=== PATIENT | male | born 1975 | race Caucasian/White ===

== ENCOUNTER 2018-02-25 18:21 | Emergency (ER) | payer OTHER ==
[2018-02-25] MEDS ORDERED: KETOROLAC TROMETHAMINE INJ/PF 30 MG/1 ML SDV IM ONE (19:07)
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
--- NOTE | 2018-02-25 19:30 | RADIOLOGY REPORT (SQ) ---
EXAM DESCRIPTION: ANKLE RIGHT COMPLETE COMPLETED DATE/TIME: 02/25/2018 7:13 pm REASON FOR STUDY: rt ankle pain s/p injury COMPARISON: None. NUMBER OF VIEWS: Three views. TECHNIQUE: AP, lateral, and oblique radiographic images acquired of the right ankle. LIMITATIONS: None. FINDINGS: MINERALIZATION: Normal. BONES: No acute fracture or dislocation. No worrisome bone lesions. JOINTS: No effusions. SOFT TISSUES: No soft tissue swelling. No foreign body. OTHER: No other significant finding. IMPRESSION: NEGATIVE STUDY OF THE RIGHT ANKLE. NO RADIOGRAPHIC EVIDENCE OF ACUTE INJURY. TECHNICAL DOCUMENTATION: JOB ID: [id number] [employer]- All Rights Reserved Reading location - IP/workstation name: [email or web address]
[2018-02-25 19:50] VITALS: BP 117/67
== END 2018-02-25 19:53 | disposition home or self-care (01) ==
LOC: ER 18:21
DX: M25.571 Pain in right ankle and joints of right foot (principal); X50.0XXA Overexertion from strenuous movement or load, initial encounter
CPT/HCPCS: 99283; 96372; 73610; L1902; J1885

== ENCOUNTER 2019-07-17 16:23 | Emergency (ER) | payer OTHER ==
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
[2019-07-17 17:56] LABS: ABSOLUTE BASOPHILS # (AUTO) 0.1 10^3/uL (0.0-0.2); ABSOLUTE EOSINOPHILS # (AUTO) 0.1 10^3/uL (0.0-0.6); ABSOLUTE LYMPHOCYTES (AUTO) 1.7 10^3/uL (0.5-4.7); ABSOLUTE MONOCYTES (AUTO) 0.7 10^3/uL (0.1-1.4); ABSOLUTE NEUT (AUTO) 5.4 10^3/uL (1.7-8.2); BASOPHILS % (AUTO) 0.7 % (0-2); EOSINOPHILS % (AUTO) 1.5 % (0-6); HEMATOCRIT 37.5 % (37.9-51.0); LYMPHOCYTES % (AUTO) 20.7 % (13-45); MEAN CORPUSCULAR HEMOGLOBIN 32.7 pg (27.0-33.4); MEAN CORPUSCULAR HGB CONC 34.7 g/dL (32.0-36.0); MEAN CORPUSCULAR VOLUME 94 fl (80-97); PLATELET COUNT 191 10^3/uL (150-450); RED BLOOD COUNT 3.98 10^6/uL (4.35-5.55); RED CELL DISTRIBUTION WIDTH 13.6 % (11.5-14.0); SEGMENTED NEUTROPHILS % (AUTO) 68.1 % (42-78); TOTAL CELLS COUNTED % (AUTO) 100 %
[2019-07-17] MEDS ORDERED: CEPHALEXIN 500 MG CAPSULE PO ONE (18:10)
--- NOTE | 2019-07-17 18:12 | RADIOLOGY REPORT (SQ) ---
EXAM DESCRIPTION: ELBOW RIGHT AP/LAT COMPLETED DATE/TIME: 07/17/2019 5:49 pm REASON FOR STUDY: pain swelling COMPARISON: None. EXAM PARAMETERS: NUMBER OF VIEWS: Two view. TECHNIQUE: AP and lateral radiographic images acquired of the right elbow. LIMITATIONS: None. FINDINGS: MINERALIZATION: Normal. BONES: No acute fracture or dislocation. No worrisome bone lesions. JOINTS: No effusion. SOFT TISSUES: No significant soft tissue swelling. No radiopaque foreign body. OTHER: No other significant finding. IMPRESSION: NO FRACTURE. TECHNICAL DOCUMENTATION: JOB ID: [id number] [id number] 2010 [employer]- All Rights Reserved Reading location - IP/workstation name: [email or web address]
[2019-07-17 18:16] LABS: ALBUMIN 3.7 g/dL (3.5-5.0); ALKALINE PHOSPHATASE 78 U/L (38-126); ANION GAP 8 (5-19); ASPARTATE AMINO TRANSFERASE 19 U/L (17-59); BILIRUBIN,DIRECT 0.3 mg/dL (0.0-0.4); BILIRUBIN,TOTAL 0.4 mg/dL (0.2-1.3); BLOOD UREA NITROGEN 24 mg/dL (7-20); CALCIUM 9.5 mg/dL (8.4-10.2); CARBON DIOXIDE 27 mmol/L (22-30); CHLORIDE 103 mmol/L (98-107); GLUCOSE 114 mg/dL (75-110); POTASSIUM 4.4 mmol/L (3.6-5.0); TOTAL PROTEIN 6.4 g/dL (6.3-8.2)
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
[2019-07-17 19:24] VITALS: BP 129/68
== END 2019-07-17 19:24 | disposition home or self-care (01) ==
LOC: ER 16:23
DX: L03.113 Cellulitis of right upper limb (principal); M10.9 Gout, unspecified; T22.011A Burn of unspecified degree of right forearm, initial encounter; X08.8XXA Exposure to other specified smoke, fire and flames, initial encounter; M25.521 Pain in right elbow; D64.9 Anemia, unspecified; F17.200 Nicotine dependence, unspecified, uncomplicated; Z79.899 Other long term (current) drug therapy
CPT/HCPCS: 36415; 80053; 85025; 87040; 99283

== ENCOUNTER 2019-11-14 09:14 | Emergency (ER) | payer OTHER ==
[2019-11-14] MEDS ORDERED: RINGERS SOLUTION,LACTATED 1,000 ML IV ONE (10:51)
[2019-11-14] MEDS ORDERED: DIPHENHYDRAMINE HCL 50 MG/ML VIAL IV ONE (10:52)
[2019-11-14] MEDS ORDERED: DEXAMETHASONE 4 MG TABLET PO ONE (10:52)
[2019-11-14] MEDS ORDERED: METOCLOPRAMIDE HCL INJ/PF 10 MG/2 ML SDV IV ONE (10:52)
[2019-11-14 11:40] LABS: ABSOLUTE BASOPHILS # (AUTO) 0.1 10^3/uL (0.0-0.2); ABSOLUTE EOSINOPHILS # (AUTO) 0.1 10^3/uL (0.0-0.6); ABSOLUTE LYMPHOCYTES (AUTO) 1.7 10^3/uL (0.5-4.7); ABSOLUTE MONOCYTES (AUTO) 1.1 10^3/uL (0.1-1.4); ABSOLUTE NEUT (AUTO) 14.4 10^3/uL (1.7-8.2); BASOPHILS % (AUTO) 0.5 % (0-2); EOSINOPHILS % (AUTO) 0.3 % (0-6); HEMATOCRIT 44.6 % (37.9-51.0); HEMOGLOBIN 15.4 g/dL (13.5-17.0); LYMPHOCYTES % (AUTO) 9.6 % (13-45); MEAN CORPUSCULAR HEMOGLOBIN 32.5 pg (27.0-33.4); MEAN CORPUSCULAR HGB CONC 34.5 g/dL (32.0-36.0); MEAN CORPUSCULAR VOLUME 94 fl (80-97); MONOCYTES % (AUTO) 6.3 % (3-13); PLATELET COUNT 234 10^3/uL (150-450); RED BLOOD COUNT 4.72 10^6/uL (4.35-5.55); RED CELL DISTRIBUTION WIDTH 12.9 % (11.5-14.0); SEGMENTED NEUTROPHILS % (AUTO) 83.3 % (42-78); TOTAL CELLS COUNTED % (AUTO) 100 %; WHITE BLOOD COUNT 17.3 10^3/uL (4.0-10.5)
[2019-11-14 11:43] LABS: APPEARANCE,URINE CLEAR; BILIRUBIN,URINE NEGATIVE (NEGATIVE); COLOR,URINE YELLOW; GLUCOSE, URINE NEGATIVE (NEGATIVE); KETONES,URINE NEGATIVE (NEGATIVE); LEUKOCYTE ESTERASE,URINE NEGATIVE (NEGATIVE); NITRITE,URINE NEGATIVE (NEGATIVE); PROTEIN,URINE NEGATIVE (NEGATIVE); URINE SPECIFIC GRAVITY 1.018; UROBILINOGEN,URINE NEGATIVE mg/dL (<2.0)
--- NOTE | 2019-11-14 11:56 | ER Document Report ---
ED General - General Chief Complaint: Headache Stated Complaint: HEADACHE Mode of Arrival: Ambulatory Information source: Patient Notes: 44-year-old male with hypertension, obesity, pack per day smoking history presents with 1 week of right-sided headache that he describes as a throbbing aching pain that has been intermittent, not associated with fever, trauma and not maximal at onset. Patient also complaining of having floating black spots in his vision intermittently. He denies any recent illness, chest pain, shortness of breath, slurred speech, difficulty with ambulation, focal weakness. Patient has tried Motrin intermittently with mild relief. Does report a history of migraine headaches in his 20s. TRAVEL OUTSIDE OF THE [place] IN LAST 30 DAYS: No - HPI Onset: Last week Onset/Duration: Gradual, Intermittent Quality of pain: Throbbing Severity: Moderate Pain Level: 3 Associated symptoms: Headache, Nausea. denies: Body/muscle aches, Chest pain, Nonproductive cough, Productive cough, Earache, Fever, Hurts to breath, Vomiting, Shortness of breath, Weakness Exacerbated by: Denies Relieved by: Denies Similar symptoms previously: Yes Recently seen / treated by doctor: Yes - Related Data Allergies/Adverse Reactions: No Known Allergies Allergy (Verified 07/17/19 17:13) Home Medications: Lisinopril. Hydrochlorothiazide. Omeprazole Past Medical History - General Information source: Patient - Social History Smoking Status: Current Every Day Smoker Cigarette use (# per day): Yes - 20 Smoking Education Provided: Yes - Smoking cessation counseling was provided for 4 minutes at the bedside Frequency of alcohol use: Heavy - And he has never ever remote history of heavy alcohol use failure and afebrile Drug Abuse: None Lives with: Alone Family History: Reviewed & Not Pertinent Patient has suicidal ideation: No Patient has homicidal ideation: No - Past Medical History Cardiac Medical History: Reports: Hx Hypertension Renal/ Medical History: Denies: Hx Peritoneal Dialysis GI Medical History: Reports: Hx Gastroesophageal Reflux Disease Review of Systems - Review of Systems Constitutional: denies: Fever, Weakness EENT: Blurred vision. denies: Double vision, Ear pain, Ear discharge, Sinus pressure, Sinus discharge, Throat pain, Difficulty swallowing Cardiovascular: denies: Chest pain, Palpitations, Heart racing Respiratory: denies: Cough, Short of breath Gastrointestinal: Nausea. denies: Abdominal pain, Vomiting Genitourinary: denies: Dysuria Male Genitourinary: No symptoms reported Musculoskeletal: denies: Back pain, Muscle pain, Leg swelling Skin: denies: Rash Hematologic/Lymphatic: No symptoms reported Neurological/Psychological: Headaches. denies: Confusion, Weakness, Gait changes, Loss of power, Speech impairment, Numbness -: Yes All other systems reviewed and negative Physical Exam - Vital signs Vitals: Temp Pulse Resp BP Pulse Ox 97.8 F 82 18 126/69 H 98 11/14/19 09:30 11/14/19 09:30 11/14/19 09:30 11/14/19 09:30 11/14/19 09:30 - Notes Notes: PHYSICAL EXAMINATION: GENERAL: Well-appearing, well-nourished and in no acute distress. HEAD: Atraumatic, normocephalic. EYES: Pupils equal round and reactive to light, extraocular movements intact, sclera anicteric, conjunctiva are normal. ENT: Nares patent, oropharynx clear without exudates. Moist mucous membranes. NECK: Normal range of motion, supple without lymphadenopathy LUNGS: Breath sounds clear to auscultation bilaterally and equal. No wheezes rales or rhonchi. HEART: Regular rate and rhythm without murmurs ABDOMEN: Soft, nontender, nondistended abdomen. No guarding, no rebound. No masses appreciated. Musculoskeletal: Normal range of motion, no pitting or edema. No cyanosis. NEUROLOGICAL: Mental status; alert and oriented x3. Cranial nerves II through XII intact. Sensation intact to sharp/dull differentiation in all extremities. Motor; normal tone. No abnormal movements appreciated. No pronator drift. Strength tested and 5/5 in bilateral wrist flexion/extension, elbow flexion/extension, shoulder abduction, straight leg raise, knee flexion/extensi on, ankle dorsiflexion/plantar flexion. Patient ambulates with a steady gait. Coordination; no ataxia. Finger to nose and heel to mcgrath testing intact bilaterally. Reflexes; brachial radialis, biceps, and patellar reflexes within normal limits and symmetric bilaterally. Babinski with downgoing toes bilaterally. PSYCH: Normal mood, normal affect. SKIN: Warm, Dry, normal turgor, no rashes or lesions noted. Course - Re-evaluation Re-evalutation: Microbiology 11/14/19 14:57 Gram Stain - Preliminary Cerebral Spinal Fluid - Csf Laboratory 11/14/19 11/14/19 11/14/19 11:04 11:04 11:04 WBC 17.3 H RBC 4.72 Hgb 15.4 Hct 44.6 MCV 94 MCH 32.5 MCHC 34.5 RDW 12.9 Plt Count 234 Lymph % (Auto) 9.6 L [place] % (Auto) 6.3 Eos % (Auto) 0.3 Baso % (Auto) 0.5 Absolute Neuts (auto) 14.4 H Absolute Lymphs (auto) 1.7 Absolute Monos (auto) 1.1 Absolute Eos (auto) 0.1 Absolute Basos (auto) 0.1 Seg Neutrophils % 83.3 H Sodium Cancelled Potassium Cancelled Chloride Cancelled Carbon Dioxide Cancelled Anion Gap Cancelled BUN Cancelled Creatinine Cancelled Est GFR ( Amer) Cancelled Est GFR (Non-Af Amer) Cancelled Est GFR (MDRD) Non-Af Cancelled Glucose Cancelled Calcium Cancelled Total Bilirubin Cancelled Direct Bilirubin Cancelled Neonat Total Bilirubin Cancelled Neonat Direct Bilirubin Cancelled Neonat Indirect Bili Cancelled AST Cancelled ALT Cancelled Alkaline Phosphatase Cancelled Total Protein Cancelled Albumin Cancelled EGFR Cancelled Urine Color YELLOW Urine Appearance CLEAR Urine pH 6.0 Ur Specific [place] 1.018 Urine Protein NEGATIVE Urine Glucose (UA) NEGATIVE Urine Ketones NEGATIVE Urine Blood NEGATIVE Urine Nitrite NEGATIVE Urine Bilirubin NEGATIVE Urine Urobilinogen NEGATIVE Ur Leukocyte Esterase NEGATIVE Urine WBC (Auto) 1 Urine RBC (Auto) 0 Squamous Epi Cells Auto 1 Urine Mucus (Auto) RARE Urine Ascorbic Acid NEGATIVE Fluid Tube Number CSF Volume CSF Appearance CSF Color CSF WBC CSF RBC CSF Glucose CSF Total Protein Urine Opiates Screen Urine Methadone Screen Ur Barbiturates Screen Ur Phencyclidine Scrn Ur Amphetamines Screen U Benzodiazepines Scrn Urine Cocaine Screen U Marijuana (THC) Screen Serum Alcohol Cancelled Influenza A (Rapid) Influenza B (Rapid) 11/14/19 11/14/19 11/14/19 11:04 12:25 13:15 WBC RBC Hgb Hct MCV MCH MCHC RDW Plt Count Lymph % (Auto) [place] % (Auto) Eos % (Auto) Baso % (Auto) Absolute Neuts (auto) Absolute Lymphs (auto) Absolute Monos (auto) Absolute Eos (auto) Absolute Basos (auto) Seg Neutrophils % Sodium 131.4 L Potassium 4.6 Chloride 94 L Carbon Dioxide 28 Anion Gap 9 BUN 19 Creatinine 0.73 Est GFR ( Amer) > 60 Est GFR (Non-Af Amer) Est GFR (MDRD) Non-Af > 60 Glucose 91 Calcium 9.5 Total Bilirubin 0.7 Direct Bilirubin 0.3 Neonat Total Bilirubin Not Reportable Neonat Direct Bilirubin Not Reportable Neonat Indirect Bili Not Reportable AST 18 ALT 24 Alkaline Phosphatase 69 Total Protein 6.9 Albumin 3.8 EGFR Urine Color Urine Appearance Urine pH Ur Specific [place] Urine Protein Urine Glucose (UA) Urine Ketones Urine Blood Urine Nitrite Urine Bilirubin Urine Urobilinogen Ur Leukocyte Esterase Urine WBC (Auto) Urine RBC (Auto) Squamous Epi Cells Auto Urine Mucus (Auto) Urine Ascorbic Acid Fluid Tube Number CSF Volume CSF Appearance CSF Color CSF WBC CSF RBC CSF Glucose CSF Total Protein Urine Opiates Screen NEGATIVE Urine Methadone Screen NEGATIVE Ur Barbiturates Screen NEGATIVE Ur Phencyclidine Scrn NEGATIVE Ur Amphetamines Screen NEGATIVE U Benzodiazepines Scrn NEGATIVE Urine Cocaine Screen NEGATIVE U Marijuana (THC) Screen NEGATIVE Serum Alcohol < 10 Influenza A (Rapid) NEGATIVE Influenza B (Rapid) NEGATIVE 11/14/19 11/14/19 11/14/19 14:53 14:57 14:57 WBC RBC Hgb Hct MCV MCH MCHC RDW Plt Count Lymph % (Auto) [place] % (Auto) Eos % (Auto) Baso % (Auto) Absolute Neuts (auto) Absolute Lymphs (auto) Absolute Monos (auto) Absolute Eos (auto) Absolute Basos (auto) Seg Neutrophils % Sodium Potassium Chloride Carbon Dioxide Anion Gap BUN Creatinine Est GFR ( Amer) Est GFR (Non-Af Amer) Est GFR (MDRD) Non-Af Glucose Calcium Total Bilirubin Direct Bilirubin Neonat Total Bilirubin Neonat Direct Bilirubin Neonat Indirect Bili AST ALT Alkaline Phosphatase Total Protein Albumin EGFR Urine Color Urine Appearance Urine pH Ur Specific [place] Urine Protein Urine Glucose (UA) Urine Ketones Urine Blood Urine Nitrite Urine Bilirubin Urine Urobilinogen Ur Leukocyte Esterase Urine WBC (Auto) Urine RBC (Auto) Squamous Epi Cells Auto Urine Mucus (Auto) Urine Ascorbic Acid Fluid Tube Number 4 1 CSF Volume 21.0 21.0 CSF Appearance CLEAR CLEAR CSF Color COLORLESS COLORLESS CSF WBC 3 4 CSF RBC 15 565 CSF Glucose 55 CSF Total Protein 41 Urine Opiates Screen Urine Methadone Screen Ur Barbiturates Screen Ur Phencyclidine Scrn Ur Amphetamines Screen U Benzodiazepines Scrn Urine Cocaine Screen U Marijuana (THC) Screen Serum Alcohol Influenza A (Rapid) Influenza B (Rapid) Guidance Fluoroscopy 11/14/19 00:00 IMPRESSION: Lumbar puncture under fluoroscopy with increased opening pressures. No immediate complication. Head CTA 11/14/19 10:51 IMPRESSION: 1. No acute intracranial abnormality. 2. No aneurysm, dissection, occlusion or stenosis of the intracranial arterial vasculature. Neck CTA 11/14/19 10:51 IMPRESSION: No aneurysm, dissection or stenosis of the cervical arterial vasculature. Lumbar Puncture 11/14/19 14:08 IMPRESSION: Lumbar puncture under fluoroscopy with increased opening pressures. No immediate complication. Temp Pulse Resp BP Pulse Ox 98.3 F 78 14 132/67 H 96 11/14/19 13:33 11/14/19 13:33 11/14/19 16:01 11/14/19 16:01 11/14/19 16:01 11/14/19 17:54 Patient reevaluated multiple times and reports improvement of his headache. LP performed and CSF not consistent with meningitis. Patient has no neuro deficits. CBC does show a leukocytosis but unclear of the source which could be stress related. 11/14/19 18:[address] Ervin regarding the patient's presentation and findings of increased opening pressure on lumbar puncture. He advises neurology co nsultation. [facility] was contacted and awaiting callback. 11/14/19 18:[address] Domingo Dunne neurologist from [facility] discussing the patient's presentation and lab findings as well as patient's opening pressure. No immediate intervention recommended. Feels patient can be followed up as an outpatient. 11/14/19 18:41 Patient has remained afebrile, without neuro deficits. CSF not consistent with meningitis. Patient did have elevated opening pressures on LP which neurology thought could be positional related, weight related. Patient was provided a copy of all of his imaging and lab work performed today to bring with him to his primary care physician's office on November 18. Patient urged to return with worsening symptoms or anything concerning to him. Patient was evaluated and treated as appropriate for the patient's presenting symptoms and complaint, with consideration of any critical or life threatening conditions that may be associated with their obtained history and exam as noted above. All results were discussed with patient and his friend who is at the bedside patient provided the opportunity to ask questions, and express concerns. Patient was educated on treatments based on their presumed diagnosis as noted above. At this time we will discharge the patient with return precautions and follow-up recommendations. Verbal discharge instructions given a the bedside. Medication warnings reviewed. Patient is in agreement with this plan and has verbalized understanding of return precautions. After careful consideration I feel that that patient can be safely discharged from the emergency department, they were advised to followup with a primary care physician in 2-3 days. Dictation on this chart was performed using voice recognition software and may result in unintended grammatical, spelling, syntax or errors. - Vital Signs Vital signs: Temp Pulse Resp BP Pulse Ox 98.3 F 78 22 H 112/77 96 11/14/19 13:33 11/14/19 13:33 11/14/19 18:01 11/14/19 18:01 11/14/19 18:01 - Laboratory Result Diagrams: 11/14/19 11:04 11/14/19 12:25 Laboratory results interpreted by me: 11/14/19 11/14/19 11:04 12:25 WBC 17.3 H Lymph % (Auto) 9.6 L Absolute Neuts (auto) 14.4 H Seg Neutrophils % 83.3 H Sodium 131.4 L Chloride 94 L - Diagnostic Test Radiology reviewed: Image reviewed, Reports reviewed Discharge - Discharge Clinical Impression: Headache Qualifiers: Headache type: unspecified Headache chronicity pattern: unspecified pattern Intractability: not intractable Qualified Code(s): R51 - Headache Leukocytosis Qualifiers: Leukocytosis type: unspecified Qualified Code(s): D72.829 - Elevated white blood cell count, unspecified Condition: Good Disposition: HOME, SELF-CARE Instructions: Headache ([facility]) Additional Instructions: Please bring all of your laboratory and imaging testing that was performed today with you to your primary care physician's appointment on November 18. Follow up with your [id number] hours for further care or return to the ED IMMEDIATELY if symptoms worsen or you have any concerns. If you cannot afford to follow up with your primary care physician a list of low cost clinics have been provided at the end of your discharge papers as well. Most prescribed medications have multiple side effects. The safest thing to do is when filling your prescription speak to your pharmacist regarding possible interactions with your normal home medications and over the counter medications such as Ibuprofen, Tylenol, Benadryl. If you experience any symptoms that cause you discomfort or concern you should discontinue the medication immediately and return to the emergency room or call your primary care physician. Prescriptions: Amox Tr/Potassium Clavulanate [Augmentin 875-125 mg Tablet] 1 tab PO BID #20 tablet Rizatriptan Benzoate [Maxalt] 10 mg PO ONCE PRN #10 tablet PRN Reason: Forms: Smoking Cessation Education, Elevated Blood Pressure
[2019-11-14 12:22] LABS: URINE AMPHETAMINES SCREEN NEGATIVE; URINE BARBITURATES SCREEN NEGATIVE; URINE BENZODIAZEPINES SCREEN NEGATIVE; URINE COCAINE SCREEN NEGATIVE; URINE MARIJUANA (THC) SCREEN NEGATIVE; URINE METHADONE SCREEN NEGATIVE; URINE PHENCYCLIDINE SCREEN NEGATIVE
[2019-11-14 13:17] LABS: ALBUMIN 3.8 g/dL (3.5-5.0); ALKALINE PHOSPHATASE 69 U/L (38-126); ANION GAP 9 (5-19); ASPARTATE AMINO TRANSFERASE 18 U/L (17-59); BILIRUBIN,DIRECT 0.3 mg/dL (0.0-0.4); BILIRUBIN,TOTAL 0.7 mg/dL (0.2-1.3); BLOOD UREA NITROGEN 19 mg/dL (7-20); CALCIUM 9.5 mg/dL (8.4-10.2); CARBON DIOXIDE 28 mmol/L (22-30); CHLORIDE 94 mmol/L (98-107); GLUCOSE 91 mg/dL (75-110); POTASSIUM 4.6 mmol/L (3.6-5.0); TOTAL PROTEIN 6.9 g/dL (6.3-8.2)
[2019-11-14 13:19] LABS: ALCOHOL < 10 mg/dL (NONE DETECTED)
[2019-11-14] MEDS ORDERED: LORAZEPAM INJ 2 MG/1 ML VIAL IV ONE (13:41)
[2019-11-14 13:42] LABS: A TYPE INFLUENZA AG NEGATIVE (NEGATIVE); B INFLUENZA AG NEGATIVE (NEGATIVE)
--- NOTE | 2019-11-14 13:52 | RADIOLOGY REPORT (SQ) ---
EXAM DESCRIPTION: CTA NECK COMPLETED DATE/TIME: 11/14/2019 1:32 pm REASON FOR STUDY: headache visual changes COMPARISON: None. TECHNIQUE: Axial dynamic scanning technique with dynamic contrast enhancement through the extra-overhead crane truck loader nial carotid and vertebral arteries. Multiplanar reconstruction. 3-D MIPS and Volume-rendered imag es acquired at the workstation and saved to PACS. Images are reviewed in soft tissue, bone, lung w indows. All CT scanners at this facility use dose modulation, iterative reconstruction, and/or weight based d osing when appropriate to reduce radiation dose to as low as reasonably achievable (ALARA). [facility]: Dose Right [facility]: CareDose [facility]: Dose Right [facility]: Teradose 4D [facility]: V2contact CONTRAST TYPE AND DOSE: 70 mL Omnipaque 350- low osmolar. RENAL FUNCTION: GFR > 60. LIMITATIONS: None. FINDINGS: AORTIC ARCH: Standard 3 vessel arch. The subclavian arteries are patent. There is no dis section. RIGHT CAROTIDS: The common, internal and external carotid arteries are patent without aneurysm, disse ction or stenosis. RIGHT VERTEBRAL: Patent without dissection, aneurysm or stenosis. LEFT CAROTIDS: The common, internal and external carotid arteries are patent without on resume, disse ction or stenosis. LEFT VERTEBRAL: Patent without dissection, aneurysm or stenosis. OTHER: No acute findings. OTHER: 3-D reconstructions confirm findings. IMPRESSION: No aneurysm, dissection or stenosis of the cervical arterial vasculature. COMMENT: Quality ID #[id number]: Measurements of distal internal carotid diameter were used as the denomina tor for stenosis measurement. TECHNICAL DOCUMENTATION: JOB ID: [id number] Quality ID # 436: Final reports with documentation of one or more dose reduction techniques (e.g., Au tomated exposure control, adjustment of the mA and/or kV according to patient size, use of iterative reconstruction technique) 2010 [employer]- All Rights Reserved Reading location - IP/workstation name: [email or web address]
--- NOTE | 2019-11-14 13:56 | RADIOLOGY REPORT (SQ) ---
EXAM DESCRIPTION: CTA HEAD COMPLETED DATE/TIME: 11/14/2019 1:32 pm REASON FOR STUDY: headache visual changes COMPARISON: None. TECHNIQUE: Post IV contrast scanning, thin section axial imaging through the brain to evaluate the a rterial structures. Source and MIP images are saved and reviewed on PACS. Advanced 3D imaging as volume-rendering, MIPs, SSD performed? yes All CT scanners at this facility use dose modulation, iterative reconstruction, and/or weight based d osing when appropriate to reduce radiation dose to as low as reasonably achievable (ALARA). [facility]: Dose Right [facility]: CareDose [facility]: Dose Right [facility]: Teradose 4D [facility]: Second Decimal CONTRAST TYPE AND DOSE: Contrast/concentration: Isovue 350.00 mg/ml; Total Contrast Delivered: 70.0 ml; Total Saline Delivered: 59.3 ml RENAL FUNCTION: GFR > 60. LIMITATIONS: None. FINDINGS: There is no acute intracranial hemorrhage, vascular territorial infarct, extra-axial fluid collection, mass effect or midline shift. There is no effacement of the cerebral sulci or basal sub arachnoid cisterns. The dietz-white matter differentiation is preserved. The caliber the ventricles is concordant with the degree of sulcation. The orbits and globes are intact. The paranasal sinuses are clear. There is no fracture of the calvarium. There is no pathologic intracranial enhancement. The M1 and M2 segments of the MCAs are patent; there is no distal branch occlusion. The anterior communicating artery is patent. The arborization pattern in the distribution of the TAWNYA s is symmetric. There is a variant origin of the right FIRST FRONT VENTILATOR. The basilar artery and its branches are patent. T he arborization pattern in the distribution of the commercial food instructor is symmetric. The dural venous sinuses and deep cerebral veins are patent. IMPRESSION: 1. No acute intracranial abnormality. 2. No aneurysm, dissection, occlusion or stenosis of the intracranial arterial vasculature. TECHNICAL DOCUMENTATION: JOB ID: [id number] Quality ID # 436: Final reports with documentation of one or more dose reduction techniques (e.g., Au tomated exposure control, adjustment of the mA and/or kV according to patient size, use of iterative reconstruction technique) 2010 [employer]- All Rights Reserved Reading location - IP/workstation name: [email or web address]
[2019-11-14] MEDS ORDERED: HYDROMORPHONE HCL INJ/PF 2 MG/ML AMPULE IV ONE ×2 (14:09→16:34)
[2019-11-14 15:54] LABS: GLUCOSE,CSF 55 mg/dL (40-70); PROTEIN,CSF 41 mg/dL (12-60)
--- NOTE | 2019-11-14 16:10 | RADIOLOGY REPORT (SQ) ---
EXAM DESCRIPTION: LUMBAR PUNCTURE; FLUORO/NEEDLE PLACEMENT/SPINE COMPLETED DATE/TIME: 11/14/2019 3:03 pm REASON FOR STUDY: Intractable headache with history of meningitis; HEADACHE COMPARISON: None. FLUOROSCOPY TIME: 10 seconds of fluoroscopy was used. 2 Images saved to PACS. TECHNIQUE: Fluoroscopic guided lumbar puncture with opening and closing pressures. LIMITATIONS: None. PROCEDURE: After written consent and assessment were obtained, the patient was brought into the fluo roscopy room and placed prone on the table. The patient's lower back was prepped in a sterile fashion and an entry site was selected under live fluoroscopic guidance. The entry site was anesthetized wit h 1% lidocaine. A 15 cm, 20 gauge needle was advanced through the skin and into the thecal sac at the level of L 3 -L 4 . An opening pressure of 30 units was obtained. After approximately 21 ml of CSF w as drained, a closing pressure of 21 units was obtained. The needle was removed and a sterile bandage was placed of the site. Specimens were sent to the lab for testing. A fluoroscopic spot image was sa tushar to PACS confirming level access. FINDINGS: Clear CSF IMPRESSION: Lumbar puncture under fluoroscopy with increased opening pressures. No immediate complic ation. COMMENT: Patient medication list reviewed: Yes- Quality ID# [id number]:Eligible professional attests to doc umenting in the medical record they obtained, updated, or reviewed the patient's current medications. Quality ID 145: Final reports for procedures using fluoroscopy that document radiation exposure indic es, or exposure time and number of fluorographic images (if radiation exposure indices are not availa ble) TECHNICAL DOCUMENTATION: Job ID: [id number] [employer]- All Rights Reserved Reading location - IP/workstation name: [email or web address]
[2019-11-14 16:12] LABS: APPEARANCE ALL TUBES CLEAR; COLOR ALL TUBES COLORLESS; CSF TUBE NUMBER 1
[2019-11-14 16:13] LABS: RED BLOOD CELL,CSF 565 /uL (0-10)
[2019-11-14 16:14] LABS: WHITE BLOOD CELL,CSF 4 /uL (0-5)
[2019-11-14 16:33] LABS: CSF TUBE NUMBER 4
[2019-11-14 16:34] LABS: APPEARANCE ALL TUBES CLEAR; COLOR ALL TUBES COLORLESS; RED BLOOD CELL,CSF 15 /uL (0-10)
[2019-11-14] MEDS ORDERED: KETOROLAC TROMETHAMINE INJ/PF 30 MG/1 ML SDV IV ONE (16:34)
[2019-11-14 16:35] LABS: WHITE BLOOD CELL,CSF 3 /uL (0-5)
[2019-11-14 18:35] VITALS: BP 112/77
== END 2019-11-14 18:47 | disposition home or self-care (01) ==
LOC: ER 09:14
DX: R51 Headache (principal); D72.829 Elevated white blood cell count, unspecified; R11.0 Nausea; F17.210 Nicotine dependence, cigarettes, uncomplicated; I10 Essential (primary) hypertension
CPT/HCPCS: 96376; 99406; 99284; 96361; 96374; 96375; 36415; 87070; 87205; 80307 ×2; 87252; 85025; 89050; 82945; 84157; 80053; 81001; 87804; 77003; 62270; 70496; 70498; J8540; J1200; J1885; J2765; J1170; J2060; J7120; 62328

== ENCOUNTER 2019-11-16 20:14 | Emergency (ER) | payer OTHER ==
[2019-11-16 20:31] VITALS: BP 127/65
[2019-11-16] MEDS ORDERED: NORMAL SALINE 1000 ML 1,000 ML IV ONE (21:30)
[2019-11-16] MEDS ORDERED: DIPHENHYDRAMINE HCL 50 MG/ML VIAL IV ONE (21:30)
[2019-11-16] MEDS ORDERED: METOCLOPRAMIDE HCL INJ/PF 10 MG/2 ML SDV IV ONE (21:30)
--- NOTE | 2019-11-16 21:35 | ER Document Report ---
ED Headache - General Stated Complaint: MIGRAINE,CONFUSION Time Seen by Provider: 11/16/19 21:10 Notes: Patient is a 44-year-old male that comes emergency department for chief complaint of a headache. Patient was seen here 2 days ago for evaluation and treatment of a headache as well, at that time a lumbar puncture was performed, neurology was consulted, and patient was discharged home on Maxalt and Augmentin. Patient states Augmentin was in case he had a sinus infection. He states the Maxalt helps for short duration but earlier this afternoon his head began throbbing again, he became light sensitive and sound sensitive and so he came back in for evaluation. Patient also states he is sleeping poorly and earlier today he felt disoriented, denies disorientation or confusion now. He states since last Thursday he has been having daily headaches like this that progressively get worse each time. He states that he was seen on Thursday by urgent care, had a CAT scan of the head and a migraine cocktail, felt good with no headache until the next morning, however since that time he has been having daily headaches again. He denies head injury, fever, vomiting, neck pain or injury. He states as a teenager he had similar severe headaches but not since that time. Past medical history of obesity, hypertension, smoking, denies alcohol, denies recreational drugs. at bedside. Patient denies any bleeding or leaking from the lumbar puncture site. TRAVEL OUTSIDE OF THE [place] IN LAST 30 DAYS: No - Related Data Allergies/Adverse Reactions: No Known Allergies Allergy (Verified 07/17/19 17:13) Past Medical History - General Information source: Patient - Social History Smoking Status: Current Every Day Smoker Frequency of alcohol use: None Drug Abuse: None Lives with: Family Family History: Reviewed & Not Pertinent - Past Medical History Cardiac Medical History: Reports: Hx Hypertension Renal/ Medical History: Denies: Hx Peritoneal Dialysis GI Medical History: Reports: Hx Gastroesophageal Reflux Disease Surgical Hx: Negative - Immunizations Immunizations up to date: Yes Hx Diphtheria, Pertussis, Tetanus Vaccination: Yes Review of Systems - Review of Systems Constitutional: No symptoms reported EENT: No symptoms reported Cardiovascular: No symptoms reported Respiratory: No symptoms reported Gastrointestinal: No symptoms reported Genitourinary: No symptoms reported Male Genitourinary: No symptoms reported Musculoskeletal: No symptoms reported Skin: No symptoms reported Hematologic/Lymphatic: No symptoms reported Neurological/Psychological: See HPI Physical Exam - Vital signs Vitals: Temp Pulse Resp BP Pulse Ox 98.0 F 85 18 127/65 H 96 11/16/19 20:29 11/16/19 20:29 11/16/19 20:29 11/16/19 20:29 11/16/19 20:29 - Notes Notes: GENERAL: Alert, interacts well. No acute distress. HEAD: Normocephalic, atraumatic. EYES: Pupils equal, round, and reactive to light. Extraocular movements intact. ENT: Oral mucosa moist, tongue midline. Oropharynx unremarkable. Airway patent. NECK: Full range of motion. Supple. Trachea midline. LUNGS: Clear to auscultation bilaterally, no wheezes, rales, or rhonchi. No respiratory distress. HEART: Regular rate and rhythm. No murmur ABDOMEN: Soft, non-tender. Non-distended. Bowel sounds present in all 4 quadrants. GENITOURINARY: Deferred EXTREMITIES: Moves all 4 extremities spontaneously. No edema, normal radial and dorsalis pedis pulses bilaterally. No cyanosis. BACK: no cervical, thoracic, lumbar midline tenderness. No saddle anesthesia, normal distal neurovascular exam. Moves all extremities in full range of motion. NEUROLOGICAL: Alert and oriented x3. Normal speech. Cranial nerves II through XII grossly intact. PSYCH: Normal affect, normal mood. SKIN: Warm, dry, normal turgor. No rashes or lesions noted. Course - Re-evaluation Re-evalutation: Patient has a normal neurological exam. Normal neck exam. Unremarkable vital signs. He is actually very well-appearing, polite, calm, does not appear to be in any distress. In addition to this the area over the back where patient had a lumbar puncture performed I cannot even discern the location anymore. This does not appear to have been bleeding or draining, patient denies that it was. Also patient has no lightheadedness or worsening symptoms with position changes. He stood up when I entered the room, ambulate around the room without any obvious worsening symptoms. Because he does not have position changes, reported leaking, I have a low suspicion of headache being from post lumbar puncture CSF leak. Patient does not have any symptoms suggesting epidural hematoma either. Patient has very migraine-like symptoms including throbbing headache with photophobia and phonophobia. Discussed with patient, trying Reglan and Benadryl first. On evaluation patient is wide awake, states he feels the same, no significant change. I discussed with Dr. Shah. He agrees that based on patient's evaluation he does not think the patient needs a blood patch, he recommends 2 of Fioricet and reevaluation with plan to discharge to follow up with Neurology. I discussed with patient, he states understanding and agreement. Nursing came and informed me that patient had suddenly eloped from the emergency department without clear explanation. - Vital Signs Vital signs: Temp Pulse Resp BP Pulse Ox 98.0 F 85 18 127/65 H 96 11/16/19 20:29 11/16/19 20:29 11/16/19 20:29 11/16/19 20:29 11/16/19 20:29 - Laboratory Result Diagrams: 11/16/19 22:14 11/16/19 22:47 Laboratory results interpreted by me: 11/16/19 11/16/19 22:14 22:47 WBC 13.0 H RBC 4.18 L Absolute Neuts (auto) 8.6 H Sodium 131.5 L BUN 24 H Discharge - Discharge Clinical Impression: Headache Qualifiers: Headache type: unspecified Headache chronicity pattern: episodic headache Intractability: intractable Qualified Code(s): R51 - Headache Disposition: ELOPED
[2019-11-16 22:32] LABS: ABSOLUTE BASOPHILS # (AUTO) 0.1 10^3/uL (0.0-0.2); ABSOLUTE EOSINOPHILS # (AUTO) 0.1 10^3/uL (0.0-0.6); ABSOLUTE LYMPHOCYTES (AUTO) 2.9 10^3/uL (0.5-4.7); ABSOLUTE MONOCYTES (AUTO) 1.4 10^3/uL (0.1-1.4); ABSOLUTE NEUT (AUTO) 8.6 10^3/uL (1.7-8.2); BASOPHILS % (AUTO) 0.5 % (0-2); EOSINOPHILS % (AUTO) 0.8 % (0-6); HEMATOCRIT 39.4 % (37.9-51.0); HEMOGLOBIN 13.6 g/dL (13.5-17.0); LYMPHOCYTES % (AUTO) 22.4 % (13-45); MEAN CORPUSCULAR HEMOGLOBIN 32.6 pg (27.0-33.4); MEAN CORPUSCULAR HGB CONC 34.6 g/dL (32.0-36.0); MEAN CORPUSCULAR VOLUME 94 fl (80-97); MONOCYTES % (AUTO) 10.4 % (3-13); PLATELET COUNT 227 10^3/uL (150-450); RED BLOOD COUNT 4.18 10^6/uL (4.35-5.55); RED CELL DISTRIBUTION WIDTH 12.7 % (11.5-14.0); SEGMENTED NEUTROPHILS % (AUTO) 65.9 % (42-78); TOTAL CELLS COUNTED % (AUTO) 100 %
[2019-11-16 23:18] LABS: BLOOD UREA NITROGEN 24 mg/dL (7-20); CALCIUM 8.8 mg/dL (8.4-10.2); CHLORIDE 100 mmol/L (98-107); GLUCOSE 97 mg/dL (75-110); POTASSIUM 3.9 mmol/L (3.6-5.0)
[2019-11-16 23:19] LABS: ANION GAP 5 (5-19); CARBON DIOXIDE 27 mmol/L (22-30)
[2019-11-17] MEDS ORDERED: BUTALB/ACETAMINOPHEN/CAFFEINE 1 TAB EACH PO ONE (00:23)
[2019-11-17] MEDS ORDERED: KETOROLAC TROMETHAMINE INJ/PF 30 MG/1 ML SDV IV ONE (00:23)
== END 2019-11-17 01:25 | disposition left against medical advice (07) ==
LOC: ER 20:14
DX: R51 Headache (principal); H53.149 Visual discomfort, unspecified; I10 Essential (primary) hypertension; F17.200 Nicotine dependence, unspecified, uncomplicated; Z98.890 Other specified postprocedural states; Z53.20 Procedure and treatment not carried out because of patient's decision for unspecified reasons
CPT/HCPCS: 99281; 96361; 96374; 96375; 36415; 85025; 80048; J1200; J2765; J7030

== ENCOUNTER → 2019-11-18 | Outpatient (CLI) | payer OTHER ==
--- NOTE | 2019-11-18 15:15 | RADIOLOGY REPORT (SQ) ---
EXAM DESCRIPTION: MRI HEAD COMBO COMPLETED DATE/TIME: 11/18/2019 2:50 pm REASON FOR STUDY: MIGRAINE (G43.809) G43.809 OTHER MIGRAINE, NOT INTRACTABLE, WITHOUT STATUS MIGR COMPARISON: CTA of the head from 11/14/2019. TECHNIQUE: Multiplanar imaging includes noncontrasted T1, T2, FLAIR, diffusion with ADC map and post gadolinium contrast T1 sequences. Images stored on PACS. CONTRAST TYPE AND DOSE: 20 mL Dotarem. RENAL FUNCTION: Not indicated. ACR Type II contrast agent associated with few, if any, unconfounded cases of NSF LIMITATIONS: None. FINDINGS: There is a partially empty sella. The corpus callosum and craniocervical junction are nor mal in appearance. 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 There is no restricted diffusion on the DWI. There is no T2/FLAIR signal abnormality. There is no blooming artifact on the gradient sequences. There is no acute intracranial hemorrhage, extra-axial fluid collection, mass, mass effect or midline shift. There is no effacement of the cerebral sulci or basal subarachnoid cisterns. The dietz-white matter differentiation is preserved. The caliber the ventricles is concordant with the degree of jacobs lcation. The intracranial vascular flow voids are preserved. There is no pathologic intracranial enhancement. The orbits and globes are normal in appearance. There is no opacification of the paranasal sinuses. IMPRESSION: No acute intracranial abnormality. EVIDENCE OF ACUTE STROKE: NO. TECHNICAL DOCUMENTATION: JOB ID: [id number] [employer]- All Rights Reserved Reading location - IP/workstation name: [email or web address]
== END ==
LOC: RAD 13:18
PROVIDERS: ATTEND Physician Assistant
DX: G43.809 Other migraine, not intractable, without status migrainosus (principal)
CPT/HCPCS: 70553; A9576